=== PATIENT | female | born 1990 | race Caucasian/White ===

== ENCOUNTER 2016-05-25 17:53 | Emergency (ER) | payer OTHER ==
[~2016-05-25] VITALS: Ht 175.3 cm; Wt 61.4 kg
[2016-05-25 17:57] VITALS: TEMP 97.5
[2016-05-25] MEDS ORDERED: RT ADVAIR 528 DISKUS IH (18:02)
[2016-05-25] MEDS ORDERED: SINGULAIR 110 MG/TAB PO (18:02)
[2016-05-25] MEDS ORDERED: LIORESAL 1010 MG/TAB PO (18:03)
[2016-05-25 19:20] LABS: PH 7 (5-8); SQUAMOUS EPITHELIAL None Seen /hpf; URINE APPEARANCE Clear; URINE BACTERIA None Seen /hpf; URINE BILIRUBIN Negative (NEGATIVE); URINE BLOOD 2+ (NEGATIVE); URINE COLOR Yellow; URINE GLUCOSE Negative (NEGATIVE); URINE KETONE Negative (NEGATIVE); URINE RBC 0-2 /hpf; URINE UROBILINOGEN Negative (NEGATIVE); URINE WBC 0-2 /hpf
[2016-05-25 19:28] LABS: ADJUSTED CALCIUM 8.9 mg/dL (8.4-10.2); ALANINE AMINOTRANSFERASE 37 U/L (9-52); ALBUMIN 4.7 gm/dL (3.5-5.0); ALKALINE PHOSPHATASE 68 U/L (50-136); ANION GAP 12 mmol/L (7-16); BILIRUBIN,TOTAL 0.9 mg/dL (0.0-1.0); BLOOD UREA NITROGEN 9 mg/dL (7-17); CALCIUM 9.5 mg/dL (8.4-10.2); CARBON DIOXIDE 26 mmol/L (22-30); CHLORIDE 101 mmol/L (98-107); CREATININE, serum 0.67 mg/dL (0.52-1.25); GLUCOSE 95 mg/dL (74-106); POTASSIUM 3.8 mmol/L (3.4-5.0); SODIUM 140 mmol/L (137-145); TOTAL PROTEIN 8.1 gm/dL (6.4-8.2)
[2016-05-25 19:29] LABS: C-REACTIVE PROTEIN < 0.5 mg/dL (0.0-0.9)
[2016-05-25 19:32] LABS: BASO % 0.5 % (0.0-2.0); EOS # 0.3 (0.0-0.7); EOS % 3.3 % (0-4.0); GRAN # 4.8 (1.4-6.5); GRAN % 55.8 % (42.2-75.2); HEMATOCRIT 41.1 % (37.0-47.0); HEMOGLOBIN 14.1 g/dl (12.5-16.0); LYMPH # 2.9 (1.2-3.4); LYMPH % 33.7 % (20.0-51.0); MEAN CELL VOLUME 90 fl (80.0-100.0); MEAN CORPUSCULAR HEMOGLOBIN 31 pg (27.0-31.0); MEAN CORPUSCULAR HGB CONC 34 g/dl (33.0-37.0); MEAN PLATELET VOLUME 10.8 fl (7.4-10.4); MONO # 0.5 (0.1-0.6); MONO % 6.2 % (1.7-9.3); PLATELET COUNT 270 K/mm3 (130-400); RED BLOOD COUNT 4.56 M/mm3 (4.10-5.30); REDCELL DISTRIBUTION WIDTH-CV 12.2 % (11.5-14.5); WHITE BLOOD COUNT 8.7 K/mm3 (4.8-10.8)
[2016-05-25 20:10] VITALS: BP 119/70; PULSE 86
[2016-05-25 23:37] LABS: CHLAMYDIA/TRACH by PCR Female Not Detected; NEISSERIA GON by PCR Female Not Detected
== END 2016-05-25 21:03 | disposition home or self-care (01) ==
LOC: COL.ER 17:53
PROVIDERS: Emergency Medicine
DX: R10.32 Left lower quadrant pain (principal); R10.2 Pelvic and perineal pain
CPT/HCPCS: J1885; J2270; J2550; J7030

== ENCOUNTER 2017-08-08 11:14 | Inpatient (IN) | payer OTHER ==
[2017-08-08] VITALS (41 sets, daily range): BP systolic 107–175; BP diastolic 60–94; PULSE 57–110; TEMP 97.8–98.4
[~2017-08-08] VITALS: Ht 175.3 cm; Wt 77.3 kg
[~2017-08-08 11:14] MED LIST: LIORESAL 1010 MG/TAB PO; RT ADVAIR 528 DISKUS IH; SINGULAIR 110 MG/TAB PO
[2017-08-08 12:00] LABS: BASO % 0.4 % (0.0-2.0); EOS # 0.1 (0.0-0.7); EOS % 0.9 % (0-4.0); GRAN # 6.4 (1.4-6.5); GRAN % 66.6 % (42.2-75.2); HEMATOCRIT 36.3 % (37.0-47.0); HEMOGLOBIN 12.1 g/dl (12.5-16.0); LYMPH # 2.2 (1.2-3.4); LYMPH % 22.9 % (20.0-51.0); MEAN CELL VOLUME 90 fl (80.0-100.0); MEAN CORPUSCULAR HEMOGLOBIN 30 pg (27.0-31.0); MEAN CORPUSCULAR HGB CONC 33 g/dl (33.0-37.0); MEAN PLATELET VOLUME 12.4 fl (7.4-10.4); MONO # 0.8 (0.1-0.6); MONO % 8.4 % (1.7-9.3); PLATELET COUNT 203 K/mm3 (130-400); RED BLOOD COUNT 4.02 M/mm3 (4.10-5.30); REDCELL DISTRIBUTION WIDTH-CV 12.4 % (11.5-14.5)
[2017-08-08] MEDS ORDERED: MOTRIN 800800 MG/TAB PO (16:52)
[2017-08-08] MEDS ORDERED: PERCOCET 325 MG1 TA2 PO (16:52)
[2017-08-09 01:50] VITALS: BP 110/63; PULSE 71; TEMP 97.8
[2017-08-09 05:30] VITALS: BP 128/75; PULSE 65; TEMP 97.6
[2017-08-09 07:45] VITALS: BP 135/85; PULSE 72; TEMP 97.4
[2017-08-09 13:00] VITALS: BP 133/87; PULSE 83; TEMP 98.1
[2017-08-09 16:30] VITALS: BP 126/83; PULSE 77; TEMP 97.6
[2017-08-09 19:55] VITALS: BP 135/81; PULSE 70; TEMP 97
[2017-08-10 07:15] VITALS: BP 117/90; PULSE 71; TEMP 97.5
== END 2017-08-10 13:15 | disposition home or self-care (01) | DRG 775 ==
LOC: OB 11:14 → LDR 11:14 → OB 23:30
PROVIDERS: Obstetrics & Gynecology
PROC: 10E0XZZ Delivery of Products of Conception, External Approach (ICD-10-PCS; principal; 2017-08-08)
PROC: 0KQM0ZZ Repair Perineum Muscle, Open Approach (ICD-10-PCS; 2017-08-08)
PROC: 3E033VJ Introduction of Other Hormone into Peripheral Vein, Percutaneous Approach (ICD-10-PCS; 2017-08-08)
PROC: 10907ZC Drainage of Amniotic Fluid, Therapeutic from Products of Conception, Via Natural or Artificial Opening (ICD-10-PCS; 2017-08-08)
DX: O76 Abnormality in fetal heart rate and rhythm complicating labor and delivery (principal); O70.1 Second degree perineal laceration during delivery; Z37.0 Single live birth; Z3A.40 40 weeks gestation of pregnancy; Z22.330 Carrier of Group B streptococcus; J45.909 Unspecified asthma, uncomplicated
CPT/HCPCS: J2540; J2590; J7120

== ENCOUNTER 2017-08-18 04:07 | Emergency (ER) | payer OTHER ==
[~2017-08-18] VITALS: Ht 172.7 cm; Wt 69.5 kg
[~2017-08-18 04:07] MED LIST changes: +MOTRIN 800800 MG/TAB PO; +PERCOCET 325 MG1 TA2 PO
[2017-08-18 04:19] VITALS: TEMP 99.7
[2017-08-18] MEDS ORDERED: PRENA1 CHEW1 CT1 PO (04:22)
[2017-08-18 04:53] LABS: HEMATOCRIT 37.3 % (37.0-47.0); HEMOGLOBIN 12.5 g/dl (12.5-16.0); MEAN CELL VOLUME 89 fl (80.0-100.0); MEAN CORPUSCULAR HEMOGLOBIN 30 pg (27.0-31.0); MEAN CORPUSCULAR HGB CONC 34 g/dl (33.0-37.0); MEAN PLATELET VOLUME 9.9 fl (7.4-10.4); PLATELET COUNT 290 K/mm3 (130-400); RED BLOOD COUNT 4.18 M/mm3 (4.10-5.30); REDCELL DISTRIBUTION WIDTH-CV 12.9 % (11.5-14.5)
[2017-08-18 05:12] LABS: BILIRUBIN,TOTAL 0.6 mg/dL (0.0-1.0); C-REACTIVE PROTEIN 4.2 mg/dL (0.0-0.9); CALCIUM 9.3 mg/dL (8.4-10.2); CREATININE, serum 0.66 mg/dL (0.52-1.25); TOTAL PROTEIN 7.8 gm/dL (6.4-8.2)
[2017-08-18 05:13] LABS: BAND 18 % (0-10); LYMPHOCYTE 4 % (20.0-51.0); NEUTROPHILS 74 % (42.0-75.2); PLATELET ESTIMATE NORMAL (NORMAL)
[2017-08-18] MEDS ORDERED: CEPHALEXIN500 M1 PO (05:13)
[2017-08-18 06:17] VITALS: BP 120/80; PULSE 93
== END 2017-08-18 06:21 | disposition home or self-care (01) ==
LOC: COL.ER 04:07
PROVIDERS: Emergency Medicine
DX: O91.22 Nonpurulent mastitis associated with the puerperium (principal); O99.53 Diseases of the respiratory system complicating the puerperium; J45.909 Unspecified asthma, uncomplicated; Z79.51 Long term (current) use of inhaled steroids
CPT/HCPCS: J7030